=== PATIENT | female | born 1965 | race Caucasian/White ===

== ENCOUNTER 2021-01-29 08:11 | Day surgery (SDC) | payer OTHER ==
[2021-01-29] MEDS ORDERED: propofoL 200 MG/20 ML VIAL IV ONE (08:18)
[2021-01-29] MEDS ORDERED: dexAMETHasone 10 MG/ML VIAL ONE (08:18)
[2021-01-29] MEDS ORDERED: ROCURONIUM 50 MG/5 ML VIAL IV ONE ×2 (08:18→10:10)
[2021-01-29] MEDS ORDERED: LIDOCAINE 2% MPF 5 ML VIAL ONE (08:18)
[2021-01-29] MEDS ORDERED: MIDAZOLAM HCL 2 MG/2 ML INJ ONE (08:19)
[2021-01-29] MEDS ORDERED: FENTANYL CITR 250 MCG/5 ML ONE (08:19)
[2021-01-29] MEDS ORDERED: ONDANSETRON 4 MG/2 ML VIAL ONE (08:20)
[2021-01-29 08:23] LABS: Absolute Lymphocytes (CBC) 1.8 K/uL (0.7-4.9); Basophils % 0.7 % (0-1.3); Hematocrit 41.4 % (36.0-45.0); MPV 6.9 fL (7.6-11.3); RBC Red Blood Cell Count 4.95 M/uL (3.86-4.86)
[2021-01-29 08:25] LABS: Urine Appearance CLEAR (Clear); Urine Blood NEGATIVE (Negative); Urine Color Red (Yellow); Urine Glucose NEGATIVE (Negative); Urine Protein TRACE (Negative); Urine Specific Gravity >=1.030 (1.005-1.030)
--- NOTE | 2021-01-29 08:29 | RAD REPORT ---
EXAM DESCRIPTION: RAD - Chest Pa And Lat (2 Views) - 01/29/2021 8:03 am CLINICAL HISTORY: Pre Op pending breast lift COMPARISON: None TECHNIQUE: Frontal and lateral views of the chest were obtained. FINDINGS: The lungs are clear. Mild prominence of the interstitial pattern is probably baseline. He art size is normal and central vasculature is within normal limits. No pleural effusion or pneumotho rax seen. No acute bony finding noted. Endplate spurring and bridging ossification noted in the thor acic spine with slightly accentuated kyphosis. No aortic abnormality. IMPRESSION: No acute cardiopulmonary process.
[2021-01-29 08:31] LABS: Urine Bilirubin 2+ (Negative); Urine Microscopic Reflex ORDER UMIC
[2021-01-29] MEDS ORDERED: Ringers Lactate 1,000 ML IV ONE ×3 (08:36→14:17)
[2021-01-29 08:37] LABS: Urine Bacteria <20 /HPF (<20); Urine RBC NONE SEEN /HPF (NONE SEEN)
[2021-01-29 08:38] LABS: Calcium Oxalate Crystals- Ur MANY (NONE SEEN)
[2021-01-29] MEDS ORDERED: SCOPOLAMINE HYDROBROMIDE PATCH TD ONE ×2 (08:42→08:44)
[2021-01-29] MEDS ORDERED: CEFAZOLIN/NS 1gm 1 GM/50 ML BAG ONE ×2 (08:49→09:24)
[2021-01-29] MEDS ORDERED: NS 0.9% VIAL 10 ML ONE (09:16)
[2021-01-29] MEDS ORDERED: KETAMINE HCL 500 MG/5 ML VIAL ONE (09:16)
[2021-01-29] MEDS ORDERED: GENTAMICIN SULF 80 MG/2ML INJ ONE (09:23)
[2021-01-29] MEDS ORDERED: NS 0.9% VIAL 20 ML ONE (09:23)
[2021-01-29] MEDS ORDERED: LIDOCAINE 1% W/EPI 1:100,000 MDV 20 ML VIAL ONE (09:24)
[2021-01-29] MEDS ORDERED: KETOROLAC 30 MG/ML INJ ONE (13:36)
[2021-01-29] MEDS ORDERED: MORPHINE 10 MG/ML VIAL ONE (13:38)
[2021-01-29] MEDS ORDERED: CODEINE 30MG/APAP 300MG TAB ONE (16:10)
[2021-01-29 16:51] VITALS: TEMP 98.2
[2021-01-29 17:33] VITALS: BP 110/67; O2SAT 95
--- NOTE | 2021-01-29 19:55 | OP ---
Surgeon: Samir Gay MD Sewing Machine Attachment Tester: Fred. Preoperative Diagnosis: Breast descent. Postoperative Diagnosis: Breast descent. Procedure: Breast lift. Anesthesia: General. Procedure In Detail: After satisfactory induction of general anesthesia, chest was prepped with Dura Prep, dry sterile drapes applied in usual manner. A 42 template was used to outline the right and le ft areola. Then incision was made with a scalpel. Then a transverse curved incision was made. Inte rvening skin was de-epithelialized with dermabrader and tenotomy scissors. The breasts were elevated simultaneously. Electrocautery was used to elevate flap approximately 1.5 cm thick toward the ster num, clavicle, anterior axillary line. Then right side was approached. Inferior incision was made. The tissue was formed into a cone with 2-0 PDS suture after excess tissue laterally was resected. T hen straps were elevated 12, 1:30 and 3 o'clock position and then the straps were then woven in and o ut of the pectoralis muscle back to base of the cone, back to pectoralis muscle, back to base of cone , tied to themselves with 2-0 PDS suture. This was done for 12 o'clock, 1:30 strap, 3 o'clock strap was sewn over the sternum at 3 o'clock position with 2-0 Ethibond. The wound was temporally stapled shut. Left side was done in a mirror-image manner. We then returned to right side, irrigated with a ntibiotic solution. 10 NEVIN was brought out of the axilla and then the wound was closed with 3-0 Vicry l subcuticular and 3-0 PDS running subcuticular followed from medial to lateral, lateral to medial, t ied in the vertical meridian. Left side was done in mirror image manner. The patient was sat up, si te for new nipple-areolar complex was marked out. Tissue cored out, nipple complex delivered, sewn w ith interrupted 4-0 PDS, followed by 4-0 PDS running subcuticular. Dressings consisted of tincture o f benzoin, Steri-Strips, followed by Esmarch, fluffs, and Morris wrap. The 10 NEVIN drains were sewn in pl morris with 2-0 silk. The amount removed from the right breast was 80 g, left was 12. GH/MODL Voice ID: [id number] Report ID: [id number]
== END 2021-01-29 18:18 | disposition home or self-care (01) ==
LOC: OR 08:11
PROVIDERS: ATTEND Specialist
PROC: 0HSV0ZZ Reposition Bilateral Breast, Open Approach (ICD-10-PCS; principal; 2021-01-29 09:00)
DX: N64.81 Ptosis of breast (principal)
CPT/HCPCS: 85025; 36415; 88305; 71046; 19316; J2704; J1580; J2250; J3010; J1100; J0690 ×2; J7120 ×3; J2405; 81003; 81015

== ENCOUNTER 2021-03-02 07:57 | Inpatient (IN) | payer OTHER ==
[2021-03-02 08:10] LABS: Absolute Lymphocytes (CBC) 1.9 K/uL (0.7-4.9); Basophils % 1.2 % (0-1.3); Hematocrit 39.1 % (36.0-45.0); Lymphocytes % 34.4 % (15.3-44.8); MPV 6.7 fL (7.6-11.3); RBC Red Blood Cell Count 4.65 M/uL (3.86-4.86)
[2021-03-02] MEDS ORDERED: CEFAZOLIN/NS 1gm 1 GM/50 ML BAG ONE (08:28)
[2021-03-02] MEDS ORDERED: Ringers Lactate 1,000 ML IV ONE ×5 (08:28→17:15)
[2021-03-02] MEDS ORDERED: SCOPOLAMINE HYDROBROMIDE PATCH TD ONE (08:42)
[2021-03-02] MEDS ORDERED: CELECOXIB 100 MG CAPSULE ONE (08:42)
[2021-03-02] MEDS ORDERED: ACETAMINOPHEN 500 MG TAB ONE (08:42)
[2021-03-02] MEDS ORDERED: Mastisol Adhesive Liq ONE ×4 (09:20→15:43)
[2021-03-02] MEDS ORDERED: dexAMETHasone 10 MG/ML VIAL ONE (10:10)
[2021-03-02] MEDS ORDERED: MIDAZOLAM HCL 2 MG/2 ML INJ ONE (10:10)
[2021-03-02] MEDS ORDERED: propofoL 200 MG/20 ML VIAL IV ONE (10:10)
[2021-03-02] MEDS ORDERED: ROCURONIUM 50 MG/5 ML VIAL IV ONE (10:11)
[2021-03-02] MEDS ORDERED: FENTANYL CITR 250 MCG/5 ML ONE (10:11)
[2021-03-02] MEDS ORDERED: KETAMINE HCL 500 MG/5 ML VIAL ONE (10:11)
[2021-03-02] MEDS ORDERED: ONDANSETRON 4 MG/2 ML VIAL ONE (10:11)
[2021-03-02] MEDS ORDERED: LIDOCAINE 2% MPF 5 ML VIAL ONE (10:11)
[2021-03-02] MEDS ORDERED: NS 0.9% VIAL 10 ML ONE (10:11)
[2021-03-02] MEDS ORDERED: EPHEDRINE SULF 50 MG/ML VIAL ONE ×2 (10:57→15:17)
[2021-03-02] MEDS ORDERED: MORPHINE 4 MG/ML SYR IV PRN (12:24)
[2021-03-02] MEDS ORDERED: PROMETHAZINE INJ 25 MG/ML AMP ONE (13:22)
[2021-03-02] MEDS ORDERED: KETOROLAC 30 MG/ML INJ ONE ×2 (13:35→15:17)
[2021-03-02] MEDS ORDERED: Phenylephrine HCl 10 MG/ML 1 ML VIAL ONE (13:37)
[2021-03-02] MEDS ORDERED: HYDROMORPHONE HCL 1 MG/ML INJ ONE (13:55)
[2021-03-02] MEDS ORDERED: ALBUMIN HUM 5% 250 ML IV ONE (14:18)
--- NOTE | 2021-03-02 18:24 | OP ---
Surgeon: Samir Gay MD Preassembler [employer]ed [employer] Board: Fred. Preoperative Diagnosis: Lipodystrophy of abdomen and back. Postoperative Diagnosis: Lipodystrophy of abdomen and back. Procedure Performed: Circumferential lift. Anesthesia: General. Procedure In Detail: After satisfactory general anesthesia, the patient was placed in right lateral decubitus position. Right leg was placed in extension with candy-cane to hold in abduction. Then th e area was prepped with DuraPrep, dry sterile drapes were applied in usual manner. A 10 blade was us ed to make incision along the , and this was done in the sacral area extending from the mid line to the anterior iliac spine anteriorly basically, and then the other incision was made. Interve joão skin was de-epithelialized with dermabrader for the portion and tenotomy scissors were used to d e-epithelialized portion as well. Then the inferior incision was made full-thickness down to fascia and the flap was elevated and also incised laterally. The medial origin of the flap was kept intact. The undersurface of the buttocks was undermined overlying the muscle, and then the flap was then ro tated into position, held in place with the 3-0 Vicryl, de-epithelialized dermis down into the buttoc ks region and then standing cone was sewn with 3-0 Vicryl and the wound was then temporarily closed w ith logan. The patient was then placed prone and then re-prepped. Dry sterile drapes were applied in usual manner again and then the opposite side was done in an identical manner. De-epithelializat ion dermabrasion was done. Then the flap was elevated and then the inferior buttock flap was elevate d. The de-epithelialized flap was formed with a cone and advanced inferiorly and then sewn with 3-0 Vicryl for the skin the close the deformity. Then that wound was closed with 3-0 Vicryl subcutaneous , then 3-0 PDS in a running locking. This was done from midline of the mid axillary line from both s ides. Then Ioban was placed. Patient was then placed supine and then anterior was prepped with Beta dine scrub and Betadine pain. Dry sterile drapes were applied in usual manner. The previous incision s were extended then and the previous abdominoplasty scar was excised, approximately 4 cm in the midl ine removed, and incisions were subcutaneous tissue. The wound was then closed with 3-0 V icryl subcutaneous, 3-0 PDS running subcuticular, tied in the midline of the abdomen. The patient's drains were sewn in place with 2-0 silk and dressings consisted of tincture of benzoin, Steri-Strips, 4x4s, and the left tape was done circumferentially. The patient tolerated procedure well. Estimate d blood loss was 500 cc. Returned to Recovery. SHIN/NALINI Voice ID: [id number] Report ID: [id number]
--- NOTE | 2021-03-02 18:27 | HP ---
Date of Admission: 03/02/2021 History Of Present Illness: A 55-year-old white female who requests circumferential body lift, statu s post tummy tuck, breast lift, hysterectomy, cholecystectomy, hernia. She does not smoke. Drinks a lcohol occasionally. Allergies: SHE IS ALLERGIC TO . Physical Examination: Vital Signs: Height is 5 feet and 6 inches and 114 pounds. She has a scar from the previous wwcke-ul-lid tummy tuck, excess skin anteriorly. Has massive weight loss and . Assessment: Excess skin of the abdomen and buttocks. Plan: Circumferential body lift. SHIN/NALINI Voice ID: [id number]
[2021-03-02] MEDS: CEPHALEXIN 500 MG CAP PO SCH (18:36)
[2021-03-02 18:47] VITALS: BMI 22.8
[2021-03-02] MEDS: ONDANSETRON 4 MG/2 ML VIAL IV PRN (21:45)
[2021-03-03] MEDS: CODEINE 30MG/APAP 300MG TAB PO PRN ×3 (00:36→23:51)
[2021-03-03] MEDS: CEPHALEXIN 500 MG CAP PO SCH ×5 (00:36→23:50)
[2021-03-03] MEDS: ONDANSETRON 4 MG/2 ML VIAL IV PRN (04:31)
[2021-03-03] MEDS ORDERED: Ringers Lactate 500 ML IV ONE (09:01)
[2021-03-03 09:21] LABS: Absolute Lymphocytes (CBC) 2.1 K/uL (0.7-4.9); Lymphocytes % 24.9 % (15.3-44.8)
[2021-03-03] MEDS: D5LR 1,000 ML IV SCH ×2 (10:24→18:00)
[2021-03-03] MEDS ORDERED: NA CHLORIDE 0.9% 250 ML ONE (16:47)
--- NOTE | 2021-03-03 18:51 | PN ---
The patient is afebrile. Her NEVIN drain is cleared, but 150 cc today. approximately 15, he r hemoglobin has dropped. We transfused 2 units of packed cells. Plan is to take her back to [facility] tomorrow. She is n.p.o. at midnight, probably with hematoma on the left buttock. SHIN/NALINI Voice ID: [id number] Report ID: [id number]
[2021-03-04] MEDS: D5LR 1,000 ML IV SCH ×4 (01:37→22:35)
[2021-03-04] MEDS: CEPHALEXIN 500 MG CAP PO SCH ×4 (06:21→23:31)
--- OUTSIDE RECORDS SUMMARY | 2021-03-04 09:57 | XMS REPORT | Continuity of Care Document ---
:1965 Author Organization [facility] t Address [address] [place] [address] Care Team Providers Name Role Phone Ad Gaitan Attending Clinician Unavailable UNKNOWN Attending Clinician Unavailable Gray Gaitan Admitting Clinician Unavailable Payers Payer Name Policy Type Policy Number Effective Date Expiration Date S ource Problems This patient has no known problems. Allergies, Adverse Reactions, Alerts Allergy Allergy Status Severity Reaction(s) Onset Inactive Treating Comm ents Source Name Type Date Date Clinician laura DA Active U 2018-03 [facility] 05-05 [place] 00:00: [facility] ciproflo DA Active U SWELLING 2018-03 [facility] 05-05 [place] 00:00: [facility] Medications This patient has no known medications. Procedures Procedure Date / Time Performed Performing Clinician Sonja liang [id number] 2019-09-09 00:00:00 [email or web address] [facility] [id number] 2019-04-11 00:00:00 [email or web address] [facility] [id number] 2019-04-11 00:00:00 [email or web address] [facility] [id number] 2019-04-11 00:00:00 [email or web address] [facility] Encounters Start End Encounter Admission Attending Care Care Encounter Source Date/Time Date/Time Type Type Clinicians Facility Department ID 2020-02-10 Inpatient JB Gaitan [facility] [id number] [facility] 08:30:[id number] [facility] [place] 2019-09-09 Inpatient Arnie [facility] 07:30:00 Ad [id number] [facility] 2019-04-11 Inpatient JB Gaitan [facility] 08:30:00 Ad [id number] [facility] 2019-09-03 2019-09-03 Outpatient UNKNOWN [facility] LABO [id number] [facility] 16:25:00 16:25:00 [id number] [facility] Results Test Description Test Time Test Comments Results Result [facility] e Comments SURGICAL SPECIMENS 2019-09-10 18:54:00 --------RUN DATE: 09/10/19 [place] [facility] - LAB PAGE 1 RUN TIME: 1854 Specimen Inquiry RUN USER: INTERFACE --------PATIENT: RENETTA NELSON ASHLYN LOC: P.5N POD B U #: [id number] AGE/SX: 54/F ROOM: [facility] RE09/09/19REG DR: Ad Gaitan MD : 61 BED: 1 DIS: 09/10/19 STATUS: DIS IN TLOC: -------- SPEC #: [id number] RECD: 09/09/191007 STATUS: LILIYA BUI #: [id number] BLAKE: 09/09/[address] [facility] [address]: Ad Gaitan MD ENTERED: 09/09/19-1008 SP TYPE: SURG OTHR DR: ORDERED: PATHGM5, PATH SPEC, H E STAIN HISTOLOGY: TISSUE ID BLK PCS СВЕТЛАНА LEV / PROCEDURE DISPOSITION ____ ___ ___ ___ ___ THYROID, LOBE A 10 1 TISSUES: A. THYROID, TOTAL/LOBE - Left Thyroid/Isthmus CLINICAL HISTORY Left thyroid follicular nodules COMMENT Specimen shows a 3.4 cm prominent hyperplastic nodule in background of nodular hyperplasia. Focal chronic inflammation and focal Hurthle cell change suggest (but are not diagnostc of) Daniel's thyroiditis. Clinical correlation is necessary. The separate segment of thyroid tissue shows nodular hyperpalsia with focal chronic inflammation. FINAL DIAGNOSIS LEFT THYROID LOBE, LOBECTOMY: NODULAR HYPERPLASIA, INCLUDING PROMINENT HYPERPLASTIC NODULE WITH CYSTIC DEGENERATION NEGATIVE FOR CARCINOMA CPT 39281, 23110 INTRAOPERATIVE DIAGNOSIS TOUCH PREPARATIONS AND FROZEN SECTION DIAGNOSIS, LEFT THYROID, A1FS: FOLLICULAR NODULE, NO FEATURES OF PAPILLARY THYROID CARCINOMA (SSA; reported to Dr. Gaitan 09/09/2019 @ 1003) CONTINUED ON NEXT PAGE --------RUN DATE: 09/10/19 [facility] - LAB PAGE 2 RUN TIME: 1854 Specimen Inquiry RUN USER: INTERFACE --------SPEC #: [id number] PATIENT: RENETTA NELSON #[id number] (Continued) GROSS DESCRIPTION The specimen is designated with the patient's name, demographics and "left thyroid". It consists of a 12 g thyroid lobe (4.1 x 2.4 x 1.8 cm) and a separate piece of thyroid tissue (1.5 x 0.8 x 0.5 cm). Cross sections of the lobe reveal a solid and cystic circumscribed nodule (3.4 x 1.0 x 1.0 cm). The lobe is sliced into eight slices. Touch preparations are made. A portion of slice 4 is submitted for frozen section. The specimen is entirely submitted in A1FS, A2-A10. INK CODE: blue-outer surface of lobe; red-outer surface of separate piece SECTION CODE: A1FS, portion of slice 4; A2, slices 1 and 2; A3, slice 3; A4, remainder of slice 4; A5, slice 5; A6, slice 6; A7, slice 7; A8-A9, slice 8, perpendicular sections; A10, separate piece of thyroid tissue. SSA/th Signed SIGNATURE ON FILE Corby Cesar MD 09/10/19 1854 -------- END OF REPORT BASIC METABOLIC PANEL 2019-09-09 08:19:00 Test Item Value Reference Range Interpretation Comme nts SODIUM (test code = NA) 143 MMOL/L 136-143 N POTASSIUM (test code = K) 3.9 MMOL/L 3.5-5.1 N CHLORIDE (test code = CL) 106 MMOL/L 98-107 N CARBON DIOXIDE (test code = 25 mmol/L 24-31 N CO2) GLUCOSE (test code = GLU) 91 mg/dL 70-104 N BLOOD UREA NITROGEN (test 17.0 MG/DL 7.0-21.0 N code = BUN) GLOMERULAR FILTRATION RATE >=60 max estimate >60 The estimated glomerular (test code = GFR) filtration rate is computed usingpatient ra ce, age (>18), sex, and serum creatinine. If anyof the neede d data elements are mi ssing the Laboratory emilee ot compute an estimation of t he glomerular filtration rate . CREATININE (test code = 1.0 mg/dL 0.8-1.5 N CREAT) CALCIUM (test code = CA) 9.6 mg/dL 8.8-10.2 N CBC W/AUTO [id number] 07:27:00 Test Item Value Reference Range Interpretation Comments WHITE BLOOD CELL (test code = 5.5 x10 3/uL 4.8-10.8 N WBC) RED BLOOD CELL (test code = 4.86 x10 6/uL 4.20-5.40 N RBC) HEMOGLOBIN (test code = HGB) 13.8 g/dL 14.5-20 L HEMATOCRIT (test code = HCT) 40.3 % 37.0-47.0 N MEAN CELL VOLUME (test code = 82.9 fL 81.0-99.0 N MCV) MEAN CELL HGB (test code = MCH) 28.4 pg 27-31 N MEAN CELL HGB CONCENTRATION 34.2 G/DL 33-36.5 N (test code = MCHC) RED CELL DISTRIBUTION WIDTH 13.8 % 12.9-16.9 N (test code = RDW) PLATELET COUNT (test code = 225 150-440 N PLT) MEAN PLATELET VOLUME (test code 10.1 fL 8.9-12.4 N = MPV) NEUTROPHIL % (test code = NT%) 48.4 % 42.2-75.2 N LYMPHOCYTE % (test code = LY%) 37.6 % 20.5-51.1 N MONOCYTE % (test code = MO%) 6.6 % 1.7-9.3 N EOSINOPHIL % (test code = EO%) 5.5 % 0.0-7.0 N BASOPHIL % (test code = BA%) 1.5 % 0-2.5 N NEUTROPHIL # (test code = NT#) 2.66 x10 3/uL 1.80-7.70 N LYMPHOCYTE # (test code = LY#) 2.06 x10 3/uL 1.00-4.80 N MONOCYTE # (test code = MO#) 0.36 x10 3/uL 0.00-0.80 N EOSINOPHIL # (test code = EO#) 0.30 x10 3/uL 0.00-0.45 N BASOPHIL # (test code = BA#) 0.08 x10 3/uL 0.0-0.20 N Novel Coronavirus 2019 [id number] 09:05:00 Test Item Value Reference Range Interpretation Comments Novel Coronavirus 2019 Inhouse (test Negative Negative code = COVNONPUI) Testing Criteria: Preprocedure ScreeningNovel Coronavirus 2019 [facility] 2019-09-06 09:05:00 Test Item Value Reference Range Interpretation Comments [facility] Negative code = COVNONPUI) Testing Criteria: Preprocedure ScreeningSURGICAL [id number] 13:05:00 RUN DATE: 04/15/19 [facility] - LAB PAGE 1 RUN TIME: 1305 Specimen Inquiry RUN USER: INTERFACE PATIENT: RENETTA NELSON LOC: LarryEdi ANDRE B U #: [id number] AGE/SX: 53/F ROOM: [facility] RE04/11/19REG DR: Ad Gaitan MD : 61 BED: 1 DIS: 04/12/19 STATUS: DIS IN TLOC: SPEC #: [id number] RECD: 04/11/19 STATUS: LILIYA BUI #: [id number] BLAKE: 04/11/[address] [facility] [address]: Ad Gaitan MD ENTERED: 04/11/19 SP TYPE: SURG OTHR DR: ORDERED: PATHGM5, PATH SPEC, H E STAIN, IRON STAIN, PAS STAIN, TRICHROME STAIN, PAS WO.STAIN HISTOLOGY: TISSUE ID BLK PCS СВЕТЛАНА LEV/ PROCEDURE DISPOSITION ____ ___ ___ ___ ___ LIVER WEDGE BX A 1 2 TISSUES: A. LIVER WEDGEBIOPSY - Wdge Liver Biopsy CLINICAL HISTORY Morbid Obesity COMMENT Sections of the specimen demonstrate liver parenchyma with severe steatosis (approximately 80%). Areas with increased mixed lobular inflammation consisting of neutrophils, lymphocytes and macrophages are id entified. Foci compatible with balloon cells are noted. The findings are consistent with a steatohepatitis. The HARDIK (non-alcoholic fatty liver disease activity score) is as follows: HARDIK grade: Fat - score 3 Lobular inflammation - score 1 Balloon hepatocytes - score 1 Total HARDIK grade5/8 HARDIK stage: Mild pericellular fibrosis, 1a (out of 4) Special stains are performed. No iron accumulation is identified (iron stain). No PAS positive diastase resisting globules are identified (PAS stains with and without diastase). A Trichrome stain demonstrates mild pericellular fibrosis around some central veins. The results of the special stains support the morphologic interpretation. Steatohepatitis may reflect either alcoholic liver disease or non-alcoholic fattyliver disease associated with some combination of obesity, Type II diabetes, hypertriglyceridemia,and insulin resistance. More uncommon causes include Cisco's disease. Clinical correlation is west mmended. CONTINUED ON NEXT PAGE RUN DATE: 04/15/19 [place] [facility] - LAB PAGE 2 RUN TIME: 1305 Specimen Inquiry RUN USER: INTERFACE SPEC #: [id number] PATIENT: RENETTA NELSON #[id number] (Continued) -- FINAL DIAGNOSIS LIVER, WEDGE BIOPSY: - Liver parenchyma with severe steatosis and focal findings suggestive of steatohepatitis. - See comment. GROSS DESCRIPTION WEDGE LIVER BIOPSY: The specimen consists of an irregular piece of yellow-middleton tissue which measures 2 x 0.8 x 0.5 cm. The specimen is sectioned and submitted in its entirety in a single cassette. RAB/eb MICROSCOPIC DESCRIPTION Microscopic performed. Signed SIGNATURE ON FILE Chelle Reyes MD 04/15/19 1305 END OF REPORT BASIC METABOLIC [id number] 15:50:00 Test Item Value Reference Range Interpretation Comments SODIUM (test code 142 MMOL/L 136-143 N = NA) POTASSIUM (test 3.9 MMOL/L 3.5-5.1 N code = K) CHLORIDE (test 101 MMOL/L 98-107 N code = CL) CARBON DIOXIDE 28 mmol/L 24-31 N (test code = CO2) GLUCOSE (test code 94 mg/dL 70-104 N = GLU) BLOOD UREA 12.2 MG/DL 7.0-21.0 N NITROGEN (test code = BUN) GLOMERULAR >=60 max >60 The estimated FILTRATION RATE estimate glomerular (test code = GFR) filtration rate is computed usingpatient ra ce, age (>18), sex, and serum creatinin e. If anyof the neede d data elements a re missing the Laboratory emilee ot compute an estimation of t he glomerular filtration rate . CREATININE (test 0.9 mg/dL 0.8-1.5 N code = CREAT) CALCIUM (test code 8.8 mg/dL 8.8-10.2 N = CA) CBC W/AUTO [id number] 15:39:00 Test Item Value Reference Range Interpretation Comments WHITE BLOOD CELL (test code = 7.1 x10 3/uL 4.8-10.8 N WBC) RED BLOOD CELL (test code = 4.84 x10 6/uL 4.20-5.40 N RBC) HEMOGLOBIN (test code = HGB) 13.1 g/dL 14.5-20 L HEMATOCRIT (test code = HCT) 40.8 % 37.0-47.0 N MEAN CELL VOLUME (test code = 84.3 fL 81.0-99.0 N MCV) MEAN CELL HGB (test code = MCH) 27.1 pg 27-31 N MEAN CELL HGB CONCENTRATION 32.1 G/DL 33-36.5 L (test code = MCHC) RED CELL DISTRIBUTION WIDTH 13.7 % 12.9-16.9 N (test code = RDW) PLATELET COUNT (test code = 257 150-440 N PLT) MEAN PLATELET VOLUME (test code 8.9 fL 8.9-12.4 N = MPV) NEUTROPHIL % (test code = NT%) 49.7 % 42.2-75.2 N LYMPHOCYTE % (test code = LY%) 39.7 % 20.5-51.1 N MONOCYTE % (test code = MO%) 6.2 % 1.7-9.3 N EOSINOPHIL % (test code = EO%) 3.4 % 0.0-7.0 N BASOPHIL % (test code = BA%) 0.7 % 0-2.5 N NEUTROPHIL # (test code = NT#) 3.53 x10 3/uL 1.80-7.70 N LYMPHOCYTE # (test code = LY#) 2.82 x10 3/uL 1.00-4.80 N MONOCYTE # (test code = MO#) 0.44 x10 3/uL 0.00-0.80 N EOSINOPHIL # (test code = EO#) 0.24 x10 3/uL 0.00-0.45 N BASOPHIL # (test code = BA#) 0.05 x10 3/uL 0.0-0.20 N SURGICAL [id number] 12:20:00 RUN DATE: 03/08/19 [facility] - LAB PAGE 1 RUN TIME: 1220 Specimen Inquiry RUN USER: INTERFACE PATIENT: RENETTA NELSON LOC: JANETH U #: [id number] AGE/SX: 53/F ROOM: RE03/04/19[facility] DR: Ad Gaitan MD : 61 BED: DIS: STATUS: [facility] TLOC: SPEC #: [id number] RECD: 03/04/192217 STATUS: LILIYA BUI #: [id number] BLAKE: 03/04/192160 [facility] DR: Ad Gaitan MD ENTERED: 03/04/19-733 SP TYPE: SURG OTHR DR: ORDERED: PATHGM4, PATH SPEC, H E STAIN, GMS, IHC AB STAIN I, AFB STAIN HISTOLOGY: TISSUE ID BLK PCS СВЕТЛАНА LEV / PROCEDURE DISPOSITION ____ ___ ___ ___ ___ GE JUNCTIONA 1 3 1 TISSUES: A. GASTRO-ESOPHAGEAL JUNCTION BIOPSY- EG Junction Bx CLINICAL HISTORY Morbid Obesity, GERD COMMENT The intestinal metaplasia seen in this specimen could be compatible with the diagnosis of Akins's esophagus in the proper clinical setting (i.e. if the intestinal metaplasia correlates with abnormal mucosa which was identified endoscopically within the tubular esophagus). Ulceration is associated wi th reactive histiocytes in an area of this biopsy. An s100 immunostain supports the morphologic interpretation. An AFB stain has been requested and the results will be reported in an addendum. Clinical and endoscopic correlation is recommended. IC:YG FINAL DIAGNOSISEG JUNCTION, BIOPSY: - Squamous mucosa with acute and chronic inflammation, focal mucosal ulceration and reactive epithelial changes, including features suggestive of reflux esophagitis. - Separate pieces of squamocolumnar junction and columnar mucosa with acute and chronic inflammation, intestinal metaplasia and reactive epithelial changes. - Negative for dysplasia. - Negative for fungalelements on a GMS stain. - See comment. CONTINUED ON NEXT PAGE RUN DATE: 03/08/19 [facility] - LAB PAGE 2 RUN TIME: 1220 Specimen Inquiry RUN USER: INTERFACE SPEC #: [id number] PATIENT: RENETTA NELSON #[id number] (Continued) GROSS DESCRIPTION EG JUNCTION: Multiple pieces of tissue which measure less middleton 1 mm to 2 mm. Entirely submitted in a single cassette. RAB/eb MICROSCOPIC DESCRIPTION Microscopic performed. Signed SIGNATURE ON Chelle Montoya MD 03/08/19 1220 --- --------- END OF REPORT SURGICAL [id number] 12:20:00 RUN DATE: 03/12/19 [facility] - LAB PAGE 1 RUN TIME: 1407 Specimen Inquiry RUN USER: INTERFACE PATIENT: RENETTA NELSON LOC: JANETH U #: [id number] AGE/SX: 53/F ROOM: RE03/04/19[facility] DR: Ad Gaitan MD : 61 BED: DIS: STATUS: [facility] TLOC: SPEC #: [id number] RECD: 03/04/19 STATUS: LILIYA BUI #: [id number] BLAKE: 03/04/[address] [facility] [address]: Ad Gaitan MD ENTERED: 03/04/19 SP TYPE: SURG OTHR DR: ORDERED: PATHGM4, PATH SPEC, H E STAIN, GMS, IHC AB STAIN I, AFB STAIN HISTOLOGY: TISSUE ID BLK PCS СВЕТЛАНА LEV / PROCEDURE DISPOSITION ____ ___ ___ ___ ___ GE JUNCTIONA 1 3 1 TISSUES: A. GASTRO-ESOPHAGEAL JUNCTION BIOPSY- EG Junction Bx ADDENDUM FINDINGS Addendum #1 Entered: 03/12/19 This addendum is being issued to report the results of additional special stain performed for acid-fast bacteria. Special stain for acid-fast bacteria is negative. Addendum Signed SIGNATURE ON FILE Rafaela Skinner MD 03/12/19 140 CLINICAL HISTORY Morbid Obesity, GERD COMMENT The intestinal metaplasia seen in this specimen could be compatible with the diagnosis of Akins's esophagus in the proper clinical setting (i.e. if the intestinal metaplasia correlates withabnormal mucosa which was identified endoscopically within the tubular esophagus). Ulceration is associated with reactive histiocytes in an area of this biopsy. An s100 immunostain supports the morphologic interpretation. An AFB stain has been requested and the results will be reported in an addendum. Clinical and endoscopic correlation is recommended. IC:CASEY CONTINUED ON NEXT PAGE RUN DATE: 03/12/19 [facility] -LAB PAGE 2 RUN TIME: 1407 Specimen Inquiry RUN USER: INTERFACE Sayra ZAMARRIPA #: [id number] PATIENT: LESLIERENETTAYIN GOLDBERG #[id number] (Continued) FINAL DIAGNOSIS EG JUNCTION, BIOPSY: - Squamous mucosa with acute and chronic inflammation, focal mucosal ulceration and reactive epithelial changes, including features suggestive of reflux esophagitis. - Separate pieces of squamocolumnar junction and columnar mucosa with acute and chronic inflammation, intestinal metaplasia and reactive epithelial changes. - Negative for dysplasia. - Negative for fungal elements on a GMS stain. - See comment. GROSS DESCRIPTION EG JUNCTION: Multiple pieces of tissue wh ich measure less middleton 1 mm to 2 mm. Entirely submitted in a single cassette. RAB/eb MICROSCOPIC DESCRIPTION Microscopic performed. Signed SIGNATURE ON FILE Chelle Reyes MD 03/08/19 1220 END OF REPORT
[2021-03-04] MEDS ORDERED: Ringers Lactate 1,000 ML IV ONE (13:16)
[2021-03-04] MEDS ORDERED: PROMETHAZINE INJ 25 MG/ML AMP ONE (13:21)
[2021-03-04] MEDS ORDERED: FENTANYL CITR 100 MCG/2 ML ONE ×2 (13:21→13:34)
[2021-03-04] MEDS ORDERED: MIDAZOLAM HCL 2 MG/2 ML INJ ONE (13:34)
[2021-03-04] MEDS ORDERED: LIDOCAINE 2% MPF 5 ML VIAL ONE (13:34)
[2021-03-04] MEDS ORDERED: propofoL 200 MG/20 ML VIAL IV ONE (13:34)
[2021-03-04] MEDS ORDERED: CEFAZOLIN IV ONE (13:45)
[2021-03-04] MEDS ORDERED: NA CHLORIDE IV ONE (13:45)
[2021-03-04] MEDS ORDERED: ROCURONIUM 50 MG/5 ML VIAL IV ONE (13:49)
[2021-03-04] MEDS ORDERED: ONDANSETRON 4 MG/2 ML VIAL ONE ×2 (14:10→15:34)
[2021-03-04] MEDS ORDERED: KETOROLAC 30 MG/ML INJ ONE (14:10)
[2021-03-04] MEDS ORDERED: dexAMETHasone 10 MG/ML VIAL ONE (14:11)
[2021-03-04] MEDS ORDERED: Mastisol Adhesive Liq ONE (14:28)
[2021-03-04] MEDS ORDERED: GLYCOPYRROLATE 0.2 MG/ML SYR ONE ×2 (14:29)
[2021-03-04] MEDS ORDERED: NEOSTIGMINE 1 MG/ML -5 ML ONE (14:58)
--- NOTE | 2021-03-04 16:41 | OP ---
Surgeon: Samir Gay MD Preoperative Diagnosis: Hematoma. Postoperative Diagnosis: Osteonecrosis. Procedure Performed: Debridement of skin and subcutaneous tissue, layer closure of 10 cm this time. Anesthesia: General Procedure In Detail: After satisfactory induction of general anesthesia, the patient was placed pron e on the operating table. Buttocks were prepped with Betadine scrub and Betadine paint. Dry sterile drapes were applied in the usual manner. Jason and Steri-Strips have previously been removed and then incision was made over the area of the skin necrosis affixing it down. The wound was explored. There was no hematoma present. This was done on both sides and intact. The wound was th en closed with 3-0 Vicryl and subcu with 3-0 PDS running subcuticular. Remain of closure approximatel y 10 cm. in each sides. Dressings consisted of 4x4s. The patient tolerated the procedure well and r eturned to recovery. Estimated blood loss of 10 cc. SIHN/NALINI Voice ID: [id number] Report ID: [id number]
[2021-03-05] MEDS: D5LR 1,000 ML IV SCH ×3 (02:00→09:53)
[2021-03-05] MEDS: CEPHALEXIN 500 MG CAP PO SCH ×2 (06:27→12:25)
[2021-03-05 09:02] VITALS: O2SAT 100
[2021-03-05 13:14] VITALS: BP 103/51; TEMP 97.9
--- NOTE | 2021-03-06 02:24 | HP ---
Date of Admission: 03/02/2021 History Of Present Illness: A 55-year-old white female who requests circumferential body lift, statu s post tummy tuck, breast lift, hysterectomy, cholecystectomy, hernia. She does not smoke. Drinks a lcohol occasionally. Allergies: SHE IS ALLERGIC TO . Physical Examination: Vital Signs: Height is 5 feet and 6 inches and 114 pounds. She has a scar from the previous [id number] tummy tuck, excess skin anteriorly. Has massive weight loss and her buttocks hanging quite low. Assessment: Excess skin of the abdomen and buttocks. Plan: Circumferential body lift. SHIN/NALINI Voice ID: [id number]
== END 2021-03-05 14:57 | disposition home or self-care (01) | DRG 620 ==
LOC: OR 07:57 → 4TH 16:27 → OR 17:00 → 4TH 17:00
PROVIDERS: ADMIT Specialist; ATTEND Specialist
PROC: 0W0F0ZZ Alteration of Abdominal Wall, Open Approach (ICD-10-PCS; principal; 2021-03-02 09:00)
PROC: 30233N1 Transfusion of Nonautologous Red Blood Cells into Peripheral Vein, Percutaneous Approach (ICD-10-PCS; 2021-03-03)
PROC: 0JB90ZZ Excision of Buttock Subcutaneous Tissue and Fascia, Open Approach (ICD-10-PCS; 2021-03-04)
DX: E88.1 Lipodystrophy, not elsewhere classified (principal); M87.9 Osteonecrosis, unspecified; L98.7 Excessive and redundant skin and subcutaneous tissue; Z90.710 Acquired absence of both cervix and uterus; Z90.49 Acquired absence of other specified parts of digestive tract; Z20.822 Contact with and (suspected) exposure to COVID-19
CPT/HCPCS: 36415; 36430; 85014; 85018; 85025; J0690; J1100; J1170; J2250; J2370; J2405; J2550; J2704; J2710; J3010; J7120; J7121; P9045